=== PATIENT | male | born 1965 | race Hispanic/Latino ===

== ENCOUNTER → 2016-03-14 | Day surgery (SDC) | payer OTHER ==
[~2016-03-14] VITALS: Ht 172.7 cm; Wt 77.1 kg
[~2016-03-14] MED LIST: BSS with VANC/TOB/EPI for EYE CASES IR ONE; LIDOCAINE 2% W/EPIN INJ 20ML **PRES FREE As Ordered ONE; LIDOCAINE 2% W/EPIN INJ 20ML **PRES FREE XX ONE; LIDOCAINE 4% INJ 5 ML AMP As Ordered ONE; LIDOCAINE 4% INJ 5 ML AMP OU ONE; LIDOCAINE 4% INJ 5 ML AMP XX ONE; MIDAZOLAM INJ 2 MG/2 ML VIAL (J2250) As Ordered ONE; OFLOXACIN 0.3 % (OCUFLOX) OPTH SOL 5ML OD ONE; POVIDONE-IODINE 5% OPHTH PREP SOL 30ML As Ordered ONE; TOBRADEX OPHTH OINT 3.5 GM As Ordered ONE; TOBRADEX OPHTH OINT 3.5 GM XX ONE; fentaNYL 100 MCG/2 ML INJECTION (J3010) As Ordered ONE; no medications
[2016-03-14 14:20] VITALS: BP 110/63
--- NOTE | 2016-03-15 05:32 | RO ---
DATE OF PROCEDURE: 03/14/2016 PREOPERATIVE DIAGNOSIS: Nasal pterygium right eye. POSTOPERATIVE DIAGNOSIS: Nasal pterygium right eye. PROCEDURE: Excision of pterygium with amniotic membrane graft. SURGEON: Isabella Thomson MD CENA: ANESTHESIA: Local with sedation. DESCRIPTION OF PROCEDURE: Patient was prepped and draped in the usual fashion. The pterygium was grasped with forceps and 2% lidocaine with epinephrine was injected underneath the pterygium. The pterygium was excised from the overlying sclera and folded over on the eye. Using a [place] knife, the pterygium was excised from the cornea and the cornea was polished with the knife. Any bleeding was controlled with the electrocautery. A amniotic membrane graft was cut to size and then tucked underneath the conjunctiva with the conjunctiva overlapping and covering the bare area created. [place] tissue adhesive was dripped onto the graft to seal it onto the conjunctiva. TobraDex ointment was applied and a patch was placed. Patient tolerated the procedure well and went to the recovery room in stable condition.
== END ==
LOC: M SDC 11:22
PROVIDERS: ATTEND Ophthalmology
DX: H11.001 Unspecified pterygium of right eye (principal); G47.30 Sleep apnea, unspecified
CPT/HCPCS: 65426; 88302; C1762; J2250; J3010

== ENCOUNTER → 2016-04-11 | Day surgery (SDC) | payer OTHER ==
[~2016-04-11] VITALS: Ht 172.7 cm; Wt 77.1 kg
[~2016-04-11] MED LIST changes: -BSS with VANC/TOB/EPI for EYE CASES IR ONE; +D5W/0.2% SODIUM CHLORIDE 250 ML IV SCH; -LIDOCAINE 2% W/EPIN INJ 20ML **PRES FREE XX ONE; -LIDOCAINE 4% INJ 5 ML AMP As Ordered ONE; -OFLOXACIN 0.3 % (OCUFLOX) OPTH SOL 5ML OD ONE; +OFLOXACIN 0.3 % (OCUFLOX) OPTH SOL 5ML OS ONE; -POVIDONE-IODINE 5% OPHTH PREP SOL 30ML As Ordered ONE; +PREDOPD OD; +REFR0.1D OU
[2016-04-11 10:05] VITALS: BP 117/72
--- NOTE | 2016-04-11 17:48 | RO ---
DATE OF PROCEDURE: 04/11/2016 PREOPERATIVE DIAGNOSIS: Pterygium nasally left eye. POSTOPERATIVE DIAGNOSIS: Pterygium nasally left eye. PROCEDURE PERFORMED: Excision of pterygium enclosure with amniotic membrane graft. SURGEON: Isabella Thomson MD [employer] ATTENDANT: ANESTHESIA: Local with sedation. DESCRIPTION OF PROCEDURE: The patient was prepped and draped in the usual fashion. Lid speculum was placed between the lids. The pterygium was grasped, and 2% lidocaine with epinephrine was injected underneath the pterygium. The pterygium was excised from the conjunctiva site of the eye and then draped over the cornea. Any bleeding was controlled with the wet-field cautery, and the conjunctiva was undermined for the graft. The pterygium was then grasped and using a [place] blade was excised from the cornea, and the cornea was smoothed over the area. The amniotic membrane graft was cut to size and then placed over the pterygium site and tucked underneath the conjunctiva. The tissue adhesive was applied directly to the graft conjunctiva area to tack the graft to the conjunctiva. The lid speculum was removed. TobraDex ointment was applied, and patch was placed. The patient tolerated the procedure well and went to the recovery room in stable condition.
== END | disposition home or self-care (01) ==
LOC: M SDC 07:19
PROVIDERS: ATTEND Ophthalmology
DX: H11.002 Unspecified pterygium of left eye (principal); G47.30 Sleep apnea, unspecified; Z79.899 Other long term (current) drug therapy
CPT/HCPCS: 65426; 88302; C1762; J2250; J3010

== ENCOUNTER → 2016-05-09 | Outpatient (REF) | payer OTHER ==
[~2016-05-09] MED LIST changes: -D5W/0.2% SODIUM CHLORIDE 250 ML IV SCH; -LIDOCAINE 2% W/EPIN INJ 20ML **PRES FREE As Ordered ONE; -LIDOCAINE 4% INJ 5 ML AMP OU ONE; -LIDOCAINE 4% INJ 5 ML AMP XX ONE; -MIDAZOLAM INJ 2 MG/2 ML VIAL (J2250) As Ordered ONE; -OFLOXACIN 0.3 % (OCUFLOX) OPTH SOL 5ML OS ONE; -TOBRADEX OPHTH OINT 3.5 GM As Ordered ONE; -TOBRADEX OPHTH OINT 3.5 GM XX ONE; -fentaNYL 100 MCG/2 ML INJECTION (J3010) As Ordered ONE
== END ==
LOC: M LAB REF 09:35
PROVIDERS: ATTEND Ophthalmology
DX: D31.01 Benign neoplasm of right conjunctiva (principal); L98.0 Pyogenic granuloma

== ENCOUNTER → 2020-12-26 | Outpatient (CLI) | payer OTHER ==
--- NOTE | 2020-12-26 15:01 | REP ---
INDICATION: Assess stenosis TECHNIQUE: Carotid ultrasonography was performed bilaterally FINDINGS: Right: CCA systolic: 84.0 centimeters/second CCA diastolic: 24.1 centimeters/second ICA systolic: 69.6 centimeters/second ICA diastolic: 28.7 centimeters/second ICA CCA ratio: 0.83 Left: CCA systolic: 102.0 centimeters/second CCA diastolic: 41.6 centimeters/second ICA systolic: 82.3 centimeters/second ICA diastolic: 47.5 centimeters/second ICA CCA ratio: 0.81 Vertebral artery: Right: Antegrade flow left: Antegrade flow The small to moderate amount of echogenic material seen along the carotid arterial simeon. None of which casts and acoustic shadow. IMPRESSION: According to the SRU criteria there is less than 50% stenosis of the internal carotid artery bilaterally. This is secondary to noncalcified atheromatous plaque formation. <Electronically signed by Bradly Curiel > 12/26/20 [id number]
== END ==
LOC: M RAD 13:29
PROVIDERS: ATTEND Nurse Practitioner Family
DX: R42 Dizziness and giddiness (principal)